=== PATIENT | male | born 1960 | race Hispanic/Latino ===

== ENCOUNTER 2018-01-16 15:36 | Emergency (ER) | payer MEDICARE ==
[2018-01-16 15:36] VITALS: BMI 25.8
[2018-01-16 15:42] VITALS: O2SAT 97
[2018-01-16] MEDS ORDERED: Tdap Vaccine 0.5 ml Vial (10-64 yrs) IM ONE ×2 (15:50→16:12)
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
[2018-01-16] MEDS ORDERED: Lidocaine 2% Inj (20ml) INFIL ONE (16:19)
[2018-01-16] MEDS ORDERED: Lidocaine 2% MPF (5 ml) Inj ONE (16:22)
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
[2018-01-16 16:55] VITALS: BP 138/84; PULSE 85; RESP 18; TEMP 98.2
== END 2018-01-16 16:55 | disposition home or self-care (01) ==
LOC: C.ER 15:36
DX: S01.01XA Laceration without foreign body of scalp, initial encounter (principal); Y08.89XA Assault by other specified means, initial encounter